=== PATIENT | male | born 1950 | race Caucasian/White ===

== ENCOUNTER → 2020-07-13 | Outpatient (CLI) | payer MEDICARE ==
[~2020-07-13] VITALS: Ht 182.9 cm; Wt 99.8 kg
[2020-07-13 12:04] LABS: BUN/CREATININE RATIO 16 (0-10)
[2020-07-13 12:29] LABS: BODY FLUID SOURCE ASCITES; MONONUCLEAR CELLS 71.2 (75-100); POLYMORPHONUCLEAR % 28.8 (0-25); RBC (AUTOMATED) 6900 (0-100000); WBC (AUTOMATED) 1134 (0-500)
[2020-07-13 12:34] LABS: TOTAL PROTEIN, BODY FLUID 2.5 gm/dL
[2020-07-14 11:14] LABS: HBSAG SCREEN Negative (Negative); HEP A AB, IGM Negative (Negative); HEP B CORE AB, IGM Negative (Negative); HEP C VIRUS AB <0.1 (0.0-0.9)
== END ==
LOC: OPSV 09:48
PROVIDERS: Internal Medicine Gastroenterology
PROC: 0W9G3ZZ Drainage of Peritoneal Cavity, Percutaneous Approach (ICD-10-PCS; principal; 2020-07-13)
DX: K70.31 Alcoholic cirrhosis of liver with ascites (principal)
CPT/HCPCS: 36415; 80048; 80074; 84157; 89051; 96365; P9047

== ENCOUNTER → 2020-08-10 | Outpatient (CLI) | payer MEDICARE ==
[2020-08-10 11:52] LABS: BUN/CREATININE RATIO 15 (0-10)
== END | disposition home or self-care (01) ==
LOC: OPSV 10:00
PROVIDERS: Internal Medicine Gastroenterology
DX: K70.31 Alcoholic cirrhosis of liver with ascites (principal)
CPT/HCPCS: 36415; 80048; 96365; C1729; P9047

== ENCOUNTER → 2020-08-31 | Outpatient (CLI) | payer MEDICARE ==
[~2020-08-31] VITALS: Ht 182.9 cm; Wt 99.8 kg
== END ==
LOC: OPSV 09:19
PROVIDERS: Internal Medicine Gastroenterology
DX: K70.31 Alcoholic cirrhosis of liver with ascites (principal)
CPT/HCPCS: 36415; 80048; 96365; P9047

== ENCOUNTER → 2020-09-07 | Outpatient (CLI) | payer MEDICARE ==
[~2020-09-07] VITALS: Ht 182.9 cm; Wt 99.8 kg
[2020-09-07 12:10] LABS: BUN/CREATININE RATIO 15 (0-10)
== END ==
LOC: OPSV 11:00
PROVIDERS: Internal Medicine Gastroenterology
DX: R18.8 Other ascites (principal)
CPT/HCPCS: 36415; 80048; 96365; P9047

== ENCOUNTER → 2020-09-15 | Outpatient (CLI) | payer MEDICARE ==
[2020-09-15 10:50] LABS: BUN/CREATININE RATIO 16 (0-10)
== END ==
LOC: OPSV 09:37
PROVIDERS: Internal Medicine Gastroenterology
DX: K70.31 Alcoholic cirrhosis of liver with ascites (principal)
CPT/HCPCS: 36415; 80048; 96365; P9047

== ENCOUNTER → 2020-09-22 | Outpatient (CLI) | payer MEDICARE ==
[2020-09-22 11:26] LABS: BUN/CREATININE RATIO 16 (0-10)
== END ==
LOC: OPSV 10:00
PROVIDERS: Internal Medicine Gastroenterology
DX: K70.31 Alcoholic cirrhosis of liver with ascites (principal)
CPT/HCPCS: 36415; 80048; 96365; C1729; P9047

== ENCOUNTER → 2020-09-29 | Outpatient (CLI) | payer MEDICARE | LOC: OPSV 10:00 | PROVIDERS: Internal Medicine Gastroenterology | DX: K70.31 Alcoholic cirrhosis of liver with ascites (principal); Z53.8 Procedure and treatment not carried out for other reasons | CPT/HCPCS: 36415; 80048; P9047 ==

== ENCOUNTER → 2020-10-10 | Outpatient (CLI) | payer MEDICARE ==
[2020-10-10 11:20] LABS: BUN/CREATININE RATIO 16 (0-10)
== END ==
LOC: OPSV 10-06 10:00
PROVIDERS: Internal Medicine Gastroenterology
DX: K70.31 Alcoholic cirrhosis of liver with ascites (principal); N18.9 Chronic kidney disease, unspecified
CPT/HCPCS: 36415; 80048; 96365; C1729; P9047